=== PATIENT | male | born 1960 | race Caucasian/White ===

== ENCOUNTER → 2016-12-31 | Outpatient (CLI) | payer BC ==
[~2016-12-31] VITALS: Ht 186.1 cm; Wt 183.6 kg
[~2016-12-31] MED LIST: ALBUAER19 INH; AMLO-114 PO; ASPI81TA28 PO; ATEN-175 PO; ATOR-22 PO; GLIM4TAB2 PO; INSU1INJ SC; LISI-461 PO; METF1000 PO; NITR0.4S UT; NITR0.4S76; PANT1TAB48 PO; TRIA0.1C20; WLLSR/150 PO
[2016-12-31 13:34] VITALS: BP 139/79; PULSE 82; Ht 186.1 cm; Wt 183.6 kg
== END | disposition home or self-care (01) ==
LOC: C.NEUR 12:46
PROVIDERS: ATTEND Internal Medicine Pulmonary Disease
DX: G47.30 Sleep apnea, unspecified (principal); G47.19 Other hypersomnia; E66.9 Obesity, unspecified

== ENCOUNTER → 2017-03-15 | Outpatient (CLI) | payer BC ==
[~2017-03-15] VITALS: Ht 185.4 cm; Wt 173.5 kg
[~2017-03-15] MED LIST changes: +NITR0.1S; -NITR0.4S76
[2017-03-15 13:10] VITALS: BP 138/80; PULSE 82; Ht 185.4 cm; Wt 173.5 kg
== END | disposition home or self-care (01) ==
LOC: C.NEUR 12:58
PROVIDERS: ATTEND Internal Medicine Pulmonary Disease
DX: G47.30 Sleep apnea, unspecified (principal); G47.19 Other hypersomnia; E66.9 Obesity, unspecified

== ENCOUNTER → 2017-09-13 | Outpatient (CLI) | payer BC ==
[~2017-09-13] VITALS: Ht 185.4 cm; Wt 149.0 kg
[2017-09-13 14:17] VITALS: BP 127/81; PULSE 62; Ht 185.4 cm; Wt 149.0 kg
== END | disposition home or self-care (01) ==
LOC: C.NEUR 12:55
PROVIDERS: ATTEND Internal Medicine Pulmonary Disease
DX: G47.30 Sleep apnea, unspecified (principal)

== ENCOUNTER 2018-12-25 06:07 | Inpatient (IN) ==
--- NOTE | 2018-11-03 10:26 | Anesthesiology Consultation ---
Date of Service November 03, 2018 Assessment & Plan (1) Encounter for pre-operative examination: Plan: SURGERY WAS INITIALLY SCHEDULED FOR 07/2018, WAS R/S DUE TO INSURANCE ISSUES. HE WAS SEEN IN PAT BY AGUILA PATEL PA-C ON 06/29/18. PHYSICAL EXAM FINDINGS IN THIS CHART ARE PER HER EXAM. CARDIO CLEARANCE 06/28/18: "He has no angina and no new symptoms despite reported regular cardiovascular activity. Able to achieve at least 4 METs without angina. Further ischemic evaluation is not necessary...low cardiac risk for ischemia event based on current symptoms." CHECK BSG AM DOS Chart Review Chart Review: Acceptable Risk for Surgery and Patient NOT seen in Pre Admission Testing History Surgery Operation Date: 11/08/18 07:30 Proposed Procedures p Left Shoulder Total Arthroplasty, Biceps Tenodesis, Debridement versus Repair Rotator Cuff - Jean Pierre Coats MD Height/Weight Height: 6 ft Weight: 156 kg Allergies Allergy/AdvReac Type Severity Reaction Status Date / Time ezetimibe [From Zetia] AdvReac Mild Muscle Pain Verified 09/20/18 10:09 Medications Home Medications Medication Instructions Recorded Confirmed Last Taken amlodipine [Norvasc] 10 mg PO QAM 18 09/20/18 Unknown aspirin [Aspirin Low Dose] 81 mg PO QAM 06/26/18 09/20/18 Unknown atenolol 100 mg PO QAM 18 09/20/18 Unknown clonazepam 1 mg PO TID PRN 06/26/18 09/20/18 Unknown hydrochlorothiazide 12.5 mg PO QAM 06/26/18 09/20/18 Unknown insulin NPH and regular human 42.5 unit SUBCUT QAM 06/26/18 09/20/18 Unknown [Novolin 70/30 U-100 Insulin] insulin NPH and regular human 50 unit SUBCUT 06/26/18 09/20/18 Unknown [Novolin 70/30 U-100 Insulin] lisinopril 20 mg PO QAM 18 09/20/18 Unknown nitroglycerin 1 tab SUBLINGUAL DIRECTED 06/26/18 09/20/18 Unknown omeprazole magnesium [Prilosec OTC] 40 mg PO QAM 18 09/20/18 Unknown albuterol sulfate 1 dose INHALATION UD PRN 09/20/18 09/20/18 Unknown linagliptin [Tradjenta] 5 mg PO DAILY 09/20/18 09/20/18 Unknown Past Medical History Medical History Anxiety Asthma STABLE/4 TIMES A MONTH INHALER Cancer S/P PARTIAL LEFT NEPHRECTOMY 09/2017; NO CHEMO/RADIATION Diabetes mellitus, type 2 A1C 6.0% 10/26/18 GERD (gastroesophageal reflux disease) CONTROLLED Hyperlipidemia Hypertension Morbid obesity Osteoarthritis Sleep apnea CPAP Past Family History Family History Father Family history of diabetes mellitus Mother Family history of diabetes mellitus Past Surgical History Surgical History History of arthroscopy KNEE History of colonoscopy History of elbow surgery R X3 History of esophagogastroduodenoscopy (EGD) History of nephrectomy PARTIAL LEFT History of tooth extraction Social History Smoking Status: Never smoker Hx Alcohol Use: No Hx Substance Use: No Physical Exam Full neck and c-spine range of motion. Very short, thick neck Full TMJ range of motion. TMD 3 finger breaths Mallampati Score 1 Dentition: intact Lungs: clear throughout to auscultation Cardiac: regular rate and rhythm, no murmurs noted Spine: normal Carotid arteries: negative bruit Extremities: no edema Trimmed lópez Testing Electrocardiogram Date: 06/28/18 SR with first degree AVB with PAC at 66bpm. LAFB. Possible anterior/inferior infarct. Chest X-Ray Date: 06/29/18 Findings: + NAD Stress Test Date: 09/06/17 Type: DSE No ischemic changes noted on DSE at 74% MPHR. Nondiagnostic stress EKG. No chest pain. EF 60-65%. Mild to moderate cLVH. No significant valvular disease. Laboratory Results Laboratory Tests 10/26/18 10/26/18 10/26/18 15:02 15:02 15:02 WBC 6.40 Hgb 15.2 Hct 44.5 Plt Count 216 PT 10.1 INR 1.0 APTT 25.9 Sodium 138 Potassium 4.0 Chloride 106 Carbon Dioxide 26 BUN 15 Creatinine 1.01 Glucose 136 H
--- NOTE | 2018-12-24 15:57 | History and Physical Report ---
DATE OF ADMISSION: 12/25/2018 CHIEF COMPLAINT: Chronic left shoulder pain. HISTORY OF PRESENT ILLNESS: This is a 58-year-old male patient of Dr. Coats'diomedes complaining of chronic left shoulder pain, longstanding, now progressively getting worse. The patient has failed conservative treatment. His pain does interfere with activities of daily living. The patient has been diagnosed with a left shoulder end-stage osteoarthritis, biceps tendinopathy and rotator cuff tendinopathy. The patient wished to proceed with a left total shoulder arthroplasty, biceps tenodesis and debridement versus rotator cuff repair. PAST MEDICAL HISTORY: Angina, hypertension, hypercholesterolemia, asthma, sleep apnea with the use of CPAP, anxiety, diabetes mellitus with insulin, osteoarthritis, sciatica, acid reflux, obesity, kidney stones, kidney cancer. SOCIAL HISTORY: He is a nonsmoker, nondrinker. PAST SURGICAL HISTORY: Partial left kidney removal, right elbow and left knee surgery. FAMILY HISTORY: Noncontributory. REVIEW OF SYSTEMS: Left shoulder chronic pain and dysfunction. Otherwise, denies any shortness of breath, chest pain, nausea, vomiting or any other joint complaints. MEDICATIONS: Norvasc 10 mg daily, Prilosec 40 mg daily, lisinopril 10 mg daily, atenolol 100 mg daily, Novolin 70/30 100 units subQ per insulin sliding scale, Ventolin 90 mcg 2 puffs every 4-6 hours p.r.n., clonazepam 1 mg 3 times daily, Tradjenta 5 mg daily as needed. ALLERGIES: No known drug allergies. PHYSICAL EXAMINATION: GENERAL: Well-developed, well-nourished 58-year-old male in no acute distress. He is alert and oriented x3 and pleasant. HEENT: Normocephalic, atraumatic. Extraocular motions are intact. Pupils are equal and reactive to light. HEART: Regular rate and rhythm, no murmurs. LUNGS: Clear. ABDOMEN: Soft, nontender, bowel sounds are present. EXTREMITIES: Left shoulder reveals active range of motion of 0-30, passively to 100 with pain and crepitation. He has 4+/5 strength with pain. NEUROLOGIC: Neurovascularly, he is intact in his left upper extremity. DIAGNOSES: Left shoulder end-stage osteoarthritis, biceps tendinopathy and rotator cuff tendinopathy. He also has a history of angina, hypertension, hypercholesterolemia, asthma, sleep apnea with the use of CPAP, anxiety, diabetes with insulin, osteoarthritis, sciatica, acid reflux, obesity, kidney stones, kidney cancer, status post resection. PLAN: The patient was advised of his diagnosis. Indications, risks, benefits, postop course have all been reviewed. The patient wished to proceed with a left total shoulder arthroplasty, biceps tenodesis and debridement versus rotator cuff repair. Necessary consent forms, preoperative testing and clearances will be obtained.
[~2018-12-25 06:07] MED LIST changes: +ACETAMINOPHEN 500 MG TAB PO SCH; -ALBUAER19 INH; -AMLO-114 PO; -ASPI81TA28 PO; -ATEN-175 PO; -ATOR-22 PO; +CEFAZOLIN 3000MG 65 ML IV SCH; +CeleBREX 200 MG CAP PO SCH; +FAMOTIDINE 20 MG TAB PO SCH; +GABAPENTIN 300 MG x 2 PO SCH; -GLIM4TAB2 PO; -INSU1INJ SC; -LISI-461 PO; +LR 15ML/HR IV SCH; -METF1000 PO; +METOCLOPRAMIDE HCL 10 MG TABLET PO SCH; -NITR0.1S; -NITR0.4S UT; -PANT1TAB48 PO; -TRIA0.1C20; -WLLSR/150 PO; +dexAMETHasone 4 MG TAB PO SCH
[2018-12-25 06:36] LABS: Hematocrit (blood only) 44.2 % (42-52); Hemoglobin 15.7 g/dL (14.0-18.0); Mean Corpuscular Volume 90.9 fL (80-100); Mean Platelet Volume 8.4 fL (7.4-10.4); Platelet Count 202 K/uL (130-400); RDW Coefficient of Variation 12.4 % (11.5-14.5); RDW Standard Deviation 41.5 fL (36.4-46.3); Red Blood Count 4.86 M/uL (4.7-6.1); White Blood Count 7.02 K/uL (4.8-10.8)
[2018-12-25 06:37] LABS: Mean Corpuscular Hgb Conc 35.5 g/dL (32-36)
[2018-12-25 06:53] LABS: BUN Creatinine Ratio 16.1 (10-20); Calcium 9.3 mg/dl (8.5-10.1); Creatinine Clr Calc Pharmacy 121.4 ml/min; Est GFR (African American) 93.9; Potassium 3.9 mmol/L (3.5-5.1)
[2018-12-25] MEDS ORDERED: BACITRACIN INJ 50,000 UNIT VIAL ONE (07:00)
--- NOTE | 2018-12-25 07:19 | History & Physical Bridge Note ---
Date of Service December 25, 2018 History & Physical Bridge Note I have examined the patient, reviewed the History & Physical and in the interval since the performance of the History & Physical I have noted the following changes of clinical significance: no changes noted
[2018-12-25] MEDS ORDERED: EPINEPHrine INJ 1 MG/ML AMP ONE (07:27)
[2018-12-25] MEDS ORDERED: ROPIVACAINE 0.5% 5 MG/ML 30 ML VIAL ONE (07:27)
[2018-12-25] MEDS ORDERED: fentaNYL citrate 100 MCG/2 ML VIAL ONE (08:09)
[2018-12-25] MEDS ORDERED: MIDAZOLAM HCL 1 MG/ML 2ML VIAL ONE (08:09)
[2018-12-25] MEDS ORDERED: ONDANSETRON INJ 2 MG/ML 2 ML VIAL ONE (08:14)
[2018-12-25] MEDS ORDERED: PROPOFOL IV EMULSION 10 MG/ML 20 ML VIAL IV ONE (08:14)
[2018-12-25] MEDS ORDERED: LIDOCAINE HCL 2% 2 ML VIAL/AMP(20MG/ML) INFIL ONE (08:14)
[2018-12-25] MEDS ORDERED: DEXAMETHASONE SOD INJ 4 MG/ML VIAL ONE (08:14)
[2018-12-25] MEDS ORDERED: EPINEPHrine HCL INJ 1 MG/ML 30ML ONE (08:19)
[2018-12-25] MEDS ORDERED: LABETALOL HCL IV 5 MG/ML 20ML IV PRN (08:22)
[2018-12-25] MEDS ORDERED: HYDROmorphone INJ 1 MG/ML SYRINGE IV PRN (08:22)
[2018-12-25] MEDS ORDERED: ePHEDrine sulfate 50 MG/ML AMP IV PRN (08:22)
[2018-12-25] MEDS ORDERED: PHENYLEPHRINE 100MCG/ML 5ML SYR IV PRN (08:22)
[2018-12-25] MEDS ORDERED: fentaNYL citrate 100 MCG/2 ML VIAL IV PRN (08:22)
[2018-12-25] MEDS ORDERED: ONDANSETRON INJ 2 MG/ML 2 ML VIAL IV PRN ×2 (08:22→13:10)
[2018-12-25] MEDS ORDERED: MEPERIDINE HCL 25 MG/ML CARP IV PRN (08:22)
[2018-12-25] MEDS ORDERED: ATROPINE SULFATE 0.1 MG/ML 10ML SYR IV PRN (08:22)
[2018-12-25] MEDS ORDERED: SUCCINYLCHOLINE CHLORIDE 20 MG/ML 10 ML VIAL ONE (11:35)
--- NOTE | 2018-12-25 11:46 | Post Operative Brief Note ---
Immediate Post Op Note v1 Date of Surgery December 25, 2018 Pre & Post Diagnosis Operation Date: 12/25/18 08:40 Pre-Op Diagnosis: Left shoulder end-stage osteoarthritis, biceps tendinopathy and rotator cuff tendinopathy and morbid obesity BMI 47.6 Post-Op Diagnosis: Left shoulder end-stage osteoarthritis, biceps tendinopathy and rotator cuff tendinopathy and morbid obesity BMI 47.6 Procedure Operation Date: 12/25/18 08:40 Actual Procedures p Left Shoulder Total Arthroplasty, Biceps Tenodesis(Left) increased difficulty due to obesity BMI 47.6- Jean Pierre Coats MD Surgeon Jean Pierre Coats MD Truck [employer] Corby MAYO Estimated Blood Loss 200 Findings Consistent with Post-Op Diagnosis Specimens Bone humeral head Drains Hemovac Drain Anesthesia Type General Regional Complications none Disposition Accompanied Patient To Recovery: No Disposition: Recovery Room Overlapping Procedure I was present for: the critical portions of procedure.
--- NOTE | 2018-12-25 12:22 | XRay Report ---
XR shoulder LT min 2V routine CLINICAL HISTORY: Post shoulder surgery COMPARISON: None FINDINGS: Postoperative findings within the left shoulder noted. The hardware is intact. There is no fracture or unexpected radiopaque body. Skin faisal and surgical drains are noted. IMPRESSION: Expected postoperative findings within the left shoulder. Electronically signed by: Delonte Hale M.D. 12/25/2018 12:21 PM
--- NOTE | 2018-12-25 12:24 | Anesthesiology Progress Note ---
Date of Service December 25, 2018 Anesthesia Post Procedure Vital Signs Vital Signs: Temp Pulse Pulse Resp BP Pulse Ox 12/25/18 12:15 80 18 157/79 H 94 12/25/18 12:05 80 18 151/68 H 96 12/25/18 11:55 77 18 146/64 H 96 12/25/18 11:49 36.4 C L 77 16 126/69 96 12/25/18 06:48 36.6 C 82 20 153/82 H 97 Pain Intensity Left Shoulder: Pain Intensity: 2 Notes Mental Status: alert / awake / arousable Patient Amnestic to Procedure: Yes Nausea / Vomiting: adequately controlled Pain: adequately controlled Airway Patency, RR, SpO2: stable & adequate BP & HR: stable & adequate Hydration State: stable & adequate Anesthetic Complications: no major complications apparent and Pt Satisfied with anesthetic care Notes: The patient did well. He is awake and comfortable. His vital signs are stable. His postop BSG was elevated at 199. He will be admitted and placed on the insulin protocol.
[2018-12-25] MEDS ORDERED: NON-FORMULARY MEDICATION (Linagliptin [Tradjenta] 5 MG) PO PRN (13:10)
[2018-12-25] MEDS ORDERED: ALBUTEROL HFA 8 GM INHALER INH PRN (13:10)
[2018-12-25] MEDS ORDERED: NALOXONE HCL 0.4 MG/1 ML VIAL/CARP IV PRN (13:10)
[2018-12-25] MEDS ORDERED: HYDROmorphone INJ 0.5 MG/0.5 ML SYR IV PRN (13:10)
[2018-12-25] MEDS ORDERED: METOCLOPRAMIDE HCL INJ 5 MG/ML 2 ML VIAL IV PRN (13:10)
[2018-12-25] MEDS ORDERED: clonazePAM 1 MG TAB PO PRN (13:10)
[2018-12-25] MEDS ORDERED: BISACODYL 10 MG SUPP PR PRN (13:10)
[2018-12-25] MEDS ORDERED: MAGNESIUM HYDROXIDE SUSP 30 ML UDC PO PRN (13:10)
[2018-12-25] MEDS ORDERED: NITROGLYCERIN SL 0.4 MG/TAB TAB SL PRN (13:10)
[2018-12-25] MEDS ORDERED: PHARMACY GLYCEMIC MGMT CONSULT PRN (13:17)
[2018-12-25] MEDS ORDERED: INSULIN GLARGINE SOLOSTAR 100 UNITS/ML 3 ML PEN SC STA (14:07)
--- NOTE | 2018-12-25 14:28 | Pharmacy Report ---
Pharmacy Abx/Gly Intl Consult - Date of Service December 25, 2018 - Scope Pharmacy has been consulted by Corby Moser to manage glycemic control for this patient as per the Pharmacy & Therapeutics Committee approved dosing protocols. - Subjective The patient is a 58 year old M admitted on 12/25/18 11:57. - Objective Vital Signs (Past 12hrs): Vital Signs Temp Pulse Pulse Resp BP Pulse Ox 12/25/18 13:50 37.0 C 20 112/82 95 12/25/18 13:20 36.4 C L 80 20 108/67 95 12/25/18 12:50 36.7 C 80 18 111/69 94 12/25/18 12:30 80 18 163/74 H 95 12/25/18 12:25 36.5 C 80 18 152/75 H 95 12/25/18 12:15 80 18 157/79 H 94 12/25/18 12:05 80 18 151/68 H 96 12/25/18 11:55 77 18 146/64 H 96 12/25/18 11:49 36.4 C L 77 16 126/69 96 12/25/18 06:48 36.6 C 82 20 153/82 H 97 Accuchecks BSG (last 24hrs): 12/25/18 12/25/18 12/25/18 06:25 06:31 11:52 Glucose 153 H POC Glucose 154 H 199 H 12/25/18 13:17 Glucose POC Glucose 229 H Lab Results (24hrs): Laboratory Results - last 24 hr 12/25/18 12/25/18 12/25/18 06:25 06:25 06:25 WBC 7.02 RBC 4.86 Hgb 15.7 Hct 44.2 MCV 90.9 MCH 32.3 MCHC 35.5 RDW Std Deviation 41.5 RDW Coeff of Nae 12.4 Plt Count 202 MPV 8.4 Sodium 137 Potassium 3.9 Chloride 104 Carbon Dioxide 25 Anion Gap 8.0 BUN 16 Creatinine 1.01 Est Cr Clr Drug Dosing 121.4 Est GFR ( Amer) 93.9 Est GFR (Non-Af Amer) 81.0 BUN/Creatinine Ratio 16.1 Glucose 153 H POC Glucose Calcium 9.3 Blood Type A Positive Antibody Screen NEGATIVE 12/25/18 12/25/18 12/25/18 06:31 11:52 13:17 WBC RBC Hgb Hct MCV MCH MCHC RDW Std Deviation RDW Coeff of Nae Plt Count MPV Sodium Potassium Chloride Carbon Dioxide Anion Gap BUN Creatinine Est Cr Clr Drug Dosing Est GFR ( Amer) Est GFR (Non-Af Amer) BUN/Creatinine Ratio Glucose POC Glucose 154 H 199 H 229 H Calcium Blood Type Antibody Screen - Recent Pertinent Medications Recent Pertinent Medications/Risk Factors for Insulin Resist: Outpatient Anti-diabetic Regimen: * Tradjenta 5mg 5 days a week * Novolin 70/30 42.5 units QAM and 50 units HS * A1c = 6.0 % 10/26/18 - Assessment ASSESSMENT & PLAN: Assessment: * Mr. Pollack is a 58 year old male with a history of Type 2 diabetes, HTN, asthma, and hyperlipidemia. He is currently well managed on his outpatient regimen of Novolin 70/30 and Tradjenta, with a recent A1C of 6.0%. * Patient received dexamethasone 8mg PO pre-operatively - Plan INPATIENT GLYCEMIC CONTROL: Oral Agents * Hold outpatient oral diabetes medications. Basal Insulin * Lantus SQ BID sliding scale * BSG <200: give 20 units * BSG 200+: give 25 units Bolus Insulin * NovoLog per scale ACHS or Q6hrs while NPO * Goal Range: Low 110 mg/dL - High 140 mg/dL * Correction Factor: 10 mg/dL/unit * Nutritional / Prandial insulin per carb ratio of 1 unit per 3 grams CHO consumed * Additional checks at 0000 and 0400 * Please note that the plan above was derived based on current level of insulin resistance and hospital stress. These recommendations are appropriate for inpatient admission only. Plan of care upon discharge will need to be reassessed to avoid potential outpatient hypo/hyperglycemia. Pharmacy will follow patient and adjust orders on a daily basis. Thank you for allowing us to participate in this patients care.
[2018-12-25] MEDS: WELCHOL~ORDER AWAITING ACTION SCH ×3 (14:32→23:44)
[2018-12-25] MEDS: ACETAMINOPHEN 500 MG TAB PO SCH ×2 (14:47→21:37)
[2018-12-25] MEDS: INSULIN ASPART 100 UNITS/ML 3 ML PEN SC SCH ×4 (14:49→23:42)
[2018-12-25] MEDS: CEFAZOLIN 2000MG 2,000 MG/15 ML SYR IV SCH ×2 (17:02→23:44)
[2018-12-25] MEDS: SODIUM CHLORIDE 0.9% 1000ML 1,000 ML IV SCH (17:02)
[2018-12-25] MEDS ORDERED: SENNA 8.6 MG TAB PO SCH (21:00)
[2018-12-25] MEDS: DOCUSATE SODIUM 100 MG CAP PO SCH (21:38)
[2018-12-25] MEDS: INSULIN GLARGINE SOLOSTAR 100 UNITS/ML 3 ML PEN SC SCH (21:39)
--- NOTE | 2018-12-25 21:47 | Consultation ---
Date of Consultation December 25, 2018 Assessment & Plan (1) S/P shoulder surgery: Left total shoulder with Dr. Coats on 12/25. No marjorie-operative complications. - Post-operative care per primary team (2) Diabetes mellitus, type 2: Complicated outpatient regimen with somewhat non-standard insulins. - Inpatient glycemic pharmacist consult - Long-acting and sliding scale insulin (3) Hypertension: BP currently 110/70. - Continue home meds (4) Asthma: No shortness of breath or wheezing on exam today. - Albuterol PRN (5) Sleep apnea: Has some anxiety related to CPAP use. - Has home device; can use if he would like, but no urgent medical need to use it while inpatient. (6) Anxiety: Long-standing anxiety. - Continue home med (7) DVT prophylaxis: SCDs - Will discuss with surgeon when to start chemoprophylaxis History of Present Illness Attending Physician: Jean Pierre Coats MD History of Present Illness 58yo M with hx of HTN, asthma, DM, and RYAN who presents as a medical consult after total left shoulder with Dr. Coats on 12/25. Patient reports ongoing left shoulder pain that was resistant to conservative therapies. Underwent procedure with Dr. Coats without complication. At present, he reports minimal shoulder pain. Reports that he sometimes uses his CPAP at night, but has anxiety issues with it. Reports no fevers/chills, chest pain, shortness of breath, abdominal pain, nausea, or vomiting. Allergies Allergy/AdvReac Type Severity Reaction Status Date / Time ezetimibe [From Zetia] AdvReac Mild Muscle Pain Verified 12/25/18 06:33 Iodinated Contrast- Oral and AdvReac Mild Verified 12/25/18 06:37 IV Dye Home Medications Home Medications Medication Instructions Recorded Confirmed Type amlodipine [Norvasc] 10 mg PO QAM 06/26/18 12/25/18 History aspirin [Aspirin Low Dose] 81 mg PO QAM 06/26/18 12/25/18 History atenolol 100 mg PO QAM 06/26/18 12/25/18 History clonazepam 1 mg PO TID PRN 06/26/18 12/25/18 History hydrochlorothiazide 12.5 mg PO QAM 06/26/18 12/25/18 History insulin NPH and regular human 42.5 unit SUBCUT QAM 06/26/18 12/25/18 History [Novolin 70/30 U-100 Insulin] insulin NPH and regular human 50 unit SUBCUT HS 06/26/18 12/25/18 History [Novolin 70/30 U-100 Insulin] lisinopril 20 mg PO QAM 06/26/18 12/25/18 History nitroglycerin 1 tab SUBLINGUAL DIRECTED 06/26/18 12/25/18 History omeprazole magnesium [Prilosec OTC] 40 mg PO QAM 06/26/18 12/25/18 History albuterol sulfate 1 dose INHALATION UD PRN 09/20/18 12/25/18 History linagliptin [Tradjenta] 5 mg PO DAILY PRN 09/20/18 12/25/18 History colesevelam [WelChol] 3 tab PO BID 11/10/18 12/25/18 History Patient History Medical History Anxiety Asthma STABLE/4 TIMES A MONTH INHALER Cancer S/P PARTIAL LEFT NEPHRECTOMY 09/2017; NO CHEMO/RADIATION Diabetes mellitus, type 2 A1C 6.0% 10/26/18 GERD (gastroesophageal reflux disease) CONTROLLED Hyperlipidemia Hypertension Morbid obesity Osteoarthritis Sleep apnea CPAP Surgical History History of arthroscopy KNEE History of colonoscopy History of elbow surgery R X3 History of esophagogastroduodenoscopy (EGD) History of nephrectomy PARTIAL LEFT History of tooth extraction Family History Father Family history of diabetes mellitus Mother Family history of diabetes mellitus Social History Preferred Language: Yemeni Communication Ability: Effective Resource Manager Required: No Beliefs That Will Affect Care: None Current Living Situation: Significant Other Current Living Situation Comment: [facility] Other Information That Helps Us Care for You: No Feels Safe at Home: Yes Safety Concerns: Feels Safe At This Time Smoking Status: Never smoker Hx Alcohol Use: No Hx Substance Use: No Review of Systems Constitutional: no fever, no chills and no sweats Eyes: no diplopia Ear, Nose, Mouth, Throat: no ear trauma, no nasal discharge and no dental pain Respiratory: no cough, no chest congestion and no dyspnea Cardiovascular: no chest pain, no dyspnea on exertion, no palpitations and no syncope Gastrointestinal: no abdominal pain, no belching, no constipation, no diarrhea/loose stools, no blood in stools and no melena Musculoskeletal: no back pain, no joint pain and no muscle weakness Integumentary: no rash, no skin ulcer and no erythema Neurologic: no generalized weakness, no loss of sensation, no numbness and no paresthesia Psychiatric: no depression and no anxiety Endocrine: no fatigue, no polydipsia and no polyphagia Physical Exam Vital Signs (Past 24 Hours): Last Vital Signs Temp 37 C 12/25/18 19:00 Pulse 79 12/25/18 19:00 Resp 20 12/25/18 19:00 BP 111/67 12/25/18 19:00 Pulse Ox 92 12/25/18 19:00 Constitutional: WD/WN, vitals as above Eyes: EOM intact bilaterally; no conjunctival abnormality ENMT: external ear and nose normal, oropharynx normal Neck: trachea midline, no thyromegaly normal visual inspection Respiratory: normal respiratory effort, lungs clear to auscultation no respiratory distress Cardiovascular: RRR, no murmur, no edema Gastrointestinal (Abdomen): Inspection/Auscultation: abdomen normal to inspection; abdomen not distended Musculoskeletal: Left shoulder in sling Skin: no rashes, warm and dry Neurologic: moves all extremities and awake Psychiatric: Orientation: alert, oriented to person and cooperative
[2018-12-25] MEDS: OXYCODONE HCL IR 5 MG TAB (IMMEDIATE RELEASE) PO PRN (21:51)
--- NOTE | 2018-12-26 01:22 | Operative Report ---
DATE OF OPERATION: 12/25/2018 INDICATION FOR PROCEDURE: The patient is a 58-year-old male with chronic progressive osteoarthritis of his left shoulder, failed conservative management. He is also morbidly obese. He has lost a great deal of weight but still is morbidly obese. His shoulder pain is disabling. Radiographs demonstrate that he has advanced glenohumeral osteoarthritis, typical large inferior humeral osteophyte. He has concentric wear on axillary view. He is completely bone on bone in the glenohumeral joint. Still has maintained subacromial space. MRI demonstrates his rotator cuff has tendinopathy, but not torn. MRI also shows that he has biceps tenosynovitis, biceps tendinopathy. PREOPERATIVE DIAGNOSES: Left shoulder end-stage glenohumeral osteoarthritis, biceps and rotator cuff tendinopathy, morbid obesity, BMI of 47.6. POSTOPERATIVE DIAGNOSES: Same, with intact rotator cuff. PROCEDURE: Left total shoulder arthroplasty, biceps tenodesis, increased difficulty with morbid obesity, BMI of 47.6. SURGEON: Jean Pierre Coats MD CONSTRUCTION OPERATIONS MANAGER: MARIA ESTHER Newsome ANESTHESIA: Regional block and general. OPERATIVE PROCEDURE: The patient was taken to the operative room and anesthetized under regional block and general anesthetic. He was placed supine on the operating room table initially. We had to translate him to left side of the bed, placed on a roll in the medial border of his left scapula, placed his head on a foam headrest. He had TEDs and SCDs and all extremities were well padded. Positioning was more difficult due to his massive size. The patient was then positioned in a 30- to 40-degree beach position and his left shoulder was examined under anesthesia. Shoulder exam demonstrated that he had about 45-50 degrees of external rotation and forward elevation to 150 degrees. His left shoulder was sterilely prepped and draped in sterile fashion with ChloraPrep. An anterior deltopectoral approach was then performed. Skin was incised sharply. Deep layer of fat was divided down to the fascia. Subcutaneous flaps were elevated. The cephalic vein was dissected out and retracted laterally with the deltoid. The pectoralis retracted medially. The upper centimeter of the pectoralis was released for inferior exposure. Biceps tendon sheath was opened up. There was significant biceps tenosynovitis extending up into the bicipital groove. The tenosynovectomy was performed. The biceps was tenodesed to the pectoralis tendon with [id number] #2 Fiberwire sutures. Proximal biceps was resected. The bursa over the subscapularis and rotator cuff was resected. The rotator cuff was noted to be completely intact. A self-retaining retractor was placed. The rotator interval was opened up and extended lateral to the lesser tuberosity. Then circumflex vessels were tied off with silk ties and divided laterally. Then the subscapularis muscle fibers were split at the level of the circumflex vessels and a cuff of muscle was left to protect the axillary nerve. A Kitner elevator was used to reflect the muscle off the inferior capsule and then a blunt Hohmann retractor was placed between the capsule and the axillary nerve. Then the subscapularis was taken down with a transtendinous incision leaving a cuff of tissue for repair on the lesser tuberosity. Then the humerus was gradually externally rotated exposing the humeral head. Humeral head had complete exposed bone, large circumferential osteophytes. The inferior osteophytes were removed with a large chisel and a rongeur and we did capsular release on the neck using a Blake elevator. Superior osteophytes were resected. Then, we used a Fukuda retractor to retract the humeral head posterior to the glenoid and I released the capsule down to the glenoid under direct visualization, then released the capsule off the anterior glenoid and rotator interval down to that release getting a 360-degree release of subscapularis anteriorly. This revealed some large osteophytes on the anterior glenoid, some superior osteophytes on the glenoid as well, and a widened, thickened biceps tendon with tendinopathy, chronic. The labrum was resected circumferentially as well. The biceps tendon was resected. Then we did an anterior inferior and posterior inferior capsular release using both electrocautery and Blake elevator on bone with the axillary nerve protected with the blunt Hohmann retractor. At this time, we went back to the humeral preparation. The humerus was exposed. The humeral head which was very large was resected with an oscillating saw. The Simpliciti total shoulder replacement system from [facility] was used. The humeral head was sized for a size 56 head. The sizing guide was placed over the cut surface. The guide pin was advanced through the guide engaging the opposite cortex. Then the reamer was used followed by the drill for the size 3 nucleus followed by the size 3 nucleus Betsy broach. This was left slightly proud and then the cup protector was placed. Then we retracted the humerus posteriorly to the glenoid and the glenoid findings were completely exposed bone with central wear. There was a tiny rim of articular cartilage superiorly and anteriorly remaining which was curetted off. All the osteophytes removed around the glenoid and then the central drill hole was made for the reamer. We did size the glenoid for a large 40 radius pegged Cortiloc system. Then the reamer was used followed by the widening of the central hole followed by the guide for the peripheral peg holes, which were drilled followed by trial reduction with a large glenoid trial followed by irrigation with antibiotic solution of bacitracin with packing each individual hole with epinephrine-soaked tampons. Then the Palacos G cement was vacuum mixed. Then the cement was injected into the peg holes and placed on the back of the implant and the glenoid was then cemented in position with an excellent fit. All excess cement was cleared and it was held in position until the cement cured. We checked stability and then went ahead back to the humerus in which we did trial reduction with a trial 56 head which had good stability and then we removed that trial as well as the Betsy broach and then irrigated out the surface with antibiotic solution of bacitracin. Placed 3 drill holes medial to the lesser tuberosity, placed 3 transosseous #5 FiberWire sutures around the lesser tuberosity. Then after further irrigation, the size 3 nucleus was advanced into position, leaving it about 3 mm proud and then we placed on the 56 x 18 head onto the nucleus, impacted the implant to engage the Hidalgo taper and seat the nucleus fully and there was a good fit and we assessed this to be stable and then the humerus was reduced to the glenoid. We verified stability and then went ahead. I repaired the subscapularis with the #5 FiberWire sutures using Darrell-Leon suture technique followed by lateral row fixation with tyryad-ry-mimhz #2 FiberWire sutures closing the rotator interval in external rotation with interrupted #2 Fiberwire sutures. The pectoralis was repaired and the biceps tenodesis was reinforced by placing #2 FiberWire sutures in the pectoralis tendon through the biceps tendon as well as repairing the pectoralis split with [id number] #2 FiberWire sutures. The patient had at least 50 degrees of external rotation, 90 degrees of abduction and forward elevation to 140 degrees without tension on the repair. The wound was irrigated. Two Hemovac drains were brought out laterally. The deltopectoral interval was repaired with [id number] #1 Vicryl sutures. Then, the subcutaneous tissues were closed with interrupted 2-0 Vicryl sutures. The skin was closed with faisal. Sterile dressings were applied. The patient had about 200 mL of blood loss. There were no complications noted. We did do the closure over 2 Hemovac drains and the patient tolerated the procedure well. MARIA ESTHER Newsome, was my first leveler and functioned as first leveler for the entire procedure. He assisted in patient positioning, prepping, draping, arm positioning, soft tissue retraction, instrument management, suture management, performed the subcutaneous and skin closure and sling application and will participate in the postoperative care of the patient. There was increased difficulty due to the patient's size, BMI of 47.6. I attest to the content of the Intraoperative Record and any orders documented therein. Any exception s are noted below.
[2018-12-26] MEDS: OXYCODONE HCL IR 5 MG TAB (IMMEDIATE RELEASE) PO PRN ×4 (01:42→16:05)
[2018-12-26] MEDS: SODIUM CHLORIDE 0.9% 1000ML 1,000 ML IV SCH (02:57)
[2018-12-26] MEDS: INSULIN ASPART 100 UNITS/ML 3 ML PEN SC SCH ×3 (04:33→13:45)
[2018-12-26] MEDS: ACETAMINOPHEN 500 MG TAB PO SCH ×2 (05:58→13:46)
[2018-12-26 06:19] LABS: Hematocrit (blood only) 36.1 % (42-52); Hemoglobin 12.7 g/dL (14.0-18.0); Immature Granulocytes # (auto) 0.02 K/uL (0.00-0.02); Immature Granulocytes % (auto) 0.2 %; Lymphocytes # (auto) 0.78 K/uL (1.2-3.4); Lymphocytes % (auto) 8.2 %; Mean Corpuscular Hgb Conc 35.2 g/dL (32-36); Mean Corpuscular Volume 91.6 fL (80-100); Mean Platelet Volume 8.3 fL (7.4-10.4); Monocytes # (auto) 0.82 K/uL (0.11-0.59); Monocytes % (auto) 8.6 %; Neutrophils # (auto) 7.93 K/uL (1.4-6.5); Platelet Count 170 K/uL (130-400); RDW Coefficient of Variation 12.4 % (11.5-14.5); RDW Standard Deviation 41.9 fL (36.4-46.3); Red Blood Count 3.94 M/uL (4.7-6.1); White Blood Count 9.55 K/uL (4.8-10.8)
[2018-12-26 06:42] LABS: BUN Creatinine Ratio 19.9 (10-20); Calcium 8.2 mg/dl (8.5-10.1); Creatinine Clr Calc Pharmacy 133.4 ml/min; Est GFR (African American) 103.8; Est GFR (Non-African American) 89.5; Potassium 4.1 mmol/L (3.5-5.1)
--- NOTE | 2018-12-26 07:57 | Anesthesiology Progress Note ---
Date of Service December 26, 2018 Anesthesia Post Procedure Vital Signs Vital Signs: Temp Pulse Pulse Resp BP Pulse Ox 12/26/18 07:20 36.8 C 74 18 118/68 94 12/26/18 04:25 36.6 C 74 16 114/68 93 12/25/18 23:05 36.7 C 73 16 118/71 94 12/25/18 19:00 37 C 79 20 111/67 92 12/25/18 15:52 36.9 C 84 20 113/68 92 12/25/18 14:45 37.3 C 78 20 100/64 97 12/25/18 13:50 37.0 C 20 112/82 95 12/25/18 13:20 36.4 C L 80 20 108/67 95 12/25/18 12:50 36.7 C 80 18 111/69 94 12/25/18 12:30 80 18 163/74 H 95 12/25/18 12:25 36.5 C 80 18 152/75 H 95 12/25/18 12:15 80 18 157/79 H 94 12/25/18 12:05 80 18 151/68 H 96 12/25/18 11:55 77 18 146/64 H 96 12/25/18 11:49 36.4 C L 77 16 126/69 96 Pain Intensity Left Shoulder: Pain Intensity: 2 Notes Mental Status: alert / awake / arousable and participated in evaluation Patient Amnestic to Procedure: Yes Nausea / Vomiting: adequately controlled Pain: adequately controlled Airway Patency, RR, SpO2: stable & adequate BP & HR: stable & adequate Hydration State: stable & adequate Anesthetic Complications: no major complications apparent and Pt Satisfied with anesthetic care
--- NOTE | 2018-12-26 08:22 | Orthopedic Progress Note ---
Date of Service December 26, 2018 Assessment & Plan (1) S/P shoulder surgery: POD #1, Left TSA, biceps tenodesis DVT proph- ASA D/C planning- Home w OPPT today after 1500 if pain controlled and ambulating well. PT/ OT. Subjective POd #1, Doing well, denies sob, cp, n/v, states pain controlled well. Physical Exam Vital Signs (Past 24 Hours): Last Vital Signs Temp 36.8 C 12/26/18 07:20 Pulse 74 12/26/18 07:20 Resp 18 12/26/18 07:20 BP 118/68 12/26/18 07:20 Pulse Ox 94 12/26/18 07:20 Physical Exam: Left shoulder dressings/ drain c/d/i, no drainage, fingers mobile, sling in tact.
[2018-12-26] MEDS: WELCHOL~ORDER AWAITING ACTION SCH (08:44)
[2018-12-26] MEDS: DOCUSATE SODIUM 100 MG CAP PO SCH (08:49)
[2018-12-26] MEDS: INSULIN GLARGINE SOLOSTAR 100 UNITS/ML 3 ML PEN SC SCH (08:54)
[2018-12-26] MEDS ORDERED: PANTOprazole 40 MG TAB PO SCH (09:00)
[2018-12-26] MEDS ORDERED: MULTIVITAMIN TAB PO SCH (09:00)
[2018-12-26] MEDS ORDERED: LISINOPRIL 20 MG TAB PO SCH (09:00)
[2018-12-26] MEDS ORDERED: ASPIRIN 81 MG ECTAB PO SCH (09:00)
[2018-12-26] MEDS ORDERED: AMLODIPINE BESYLATE 5 MG TAB PO SCH (09:00)
[2018-12-26] MEDS ORDERED: ATENOLOL 50 MG TABLET PO SCH (09:00)
--- NOTE | 2018-12-26 13:37 | Pharmacy Report ---
Pharmacy Glycemic Short Note 2 - Date of Service December 26, 2018 - Glycemic Short BSG Results (Last 24 hours): 12/25/18 12/25/18 12/25/18 17:12 19:52 20:40 Glucose POC Glucose 277 H 247 H 228 H 12/25/18 12/26/18 12/26/18 23:35 04:31 05:51 Glucose 147 H POC Glucose 175 H 144 H 12/26/18 12/26/18 08:12 12:19 Glucose POC Glucose 159 H 152 H ASSESSMENT: * Mr. Pollack's BSGs over the preceding 24hrs: [id number]/dL. Yesterday's sustained hyperglycemia attributable to pre-operative PO DXM. I anticipate the effects to dissipate within the next 12hrs. Will continue with standing insulin orders PLAN FOR INPATIENT GLYCEMIC CONTROL: * Hold outpatient oral diabetes medications * Basal insulin * Lantus scale SQ BID * BSGs <200mg/dL give 20 units * BSGs >/=200mg/dL give 25 units * Bolus insulin * NovoLog per scale ACHS or Q6hrs while NPO * Goal Range: Low 110 mg/dL - High 140 mg/dL * Correction Factor: 10 mg/dL/unit * Nutritional / Prandial insulin per carb ratio of 1 unit per 3 grams CHO consumed PLAN FOR DISCHARGE: * a1c is at goal based on age and co morbidities. I would continue his home Rx if he doesn't report frequent hypoglycemia.
[2018-12-26] MEDS ORDERED: COLESEVELAM HCL PO SCH (17:00)
--- NOTE | 2018-12-26 18:18 | Hospitalist Progress Note ---
Date of Service December 26, 2018 Assessment & Plan (1) S/P shoulder surgery: Left total shoulder with Dr. Coats on 12/25. No marjorie-operative complications. - Post-operative care per primary team (2) Diabetes mellitus, type 2: Complicated outpatient regimen with somewhat non-standard insulins. - Inpatient glycemic pharmacist consult - Inpatient sugars were well-controlled; returned to home regimen on discharge. (3) Hypertension: BP currently 110/70. - Continue home meds (4) Asthma: No shortness of breath or wheezing on exam today. - Albuterol PRN (5) Sleep apnea: Has some anxiety related to CPAP use. - Has home device; can use if he would like, but no urgent medical need to use it while inpatient. (6) Anxiety: Long-standing anxiety. - Continue home med (7) DVT prophylaxis: SCDs - Will discuss with surgeon when to start chemoprophylaxis Subjective Some shoulder pain, but otherwise feeling well. Sad because a pet at home. Physical Exam Vital Signs (Past 24 Hours): Last Vital Signs Temp 36.5 C 12/26/18 14:59 Pulse 65 12/26/18 14:59 Resp 20 12/26/18 14:59 BP 117/72 12/26/18 14:59 Pulse Ox 95 12/26/18 14:59 Constitutional: WD/WN, vitals as above Eyes: EOM intact bilaterally; no conjunctival abnormality ENMT: external ear and nose normal, oropharynx normal Neck: trachea midline, no thyromegaly normal visual inspection Respiratory: normal respiratory effort, lungs clear to auscultation no respiratory distress Cardiovascular: RRR, no murmur, no edema Gastrointestinal (Abdomen): Inspection/Auscultation: abdomen normal to inspection; abdomen not distended Musculoskeletal: Left shoulder in sling Skin: no rashes, warm and dry Neurologic: moves all extremities and awake Psychiatric: Orientation: alert, oriented to person and cooperative
--- NOTE | 2018-12-27 08:27 | Discharge Summary ---
Date of Service January 03, 2019 Discharge Data Consultations 12/20/18 13:51 Consult Hospitalist Routine 12/25/18 13:10 Consult Case Management - Discharge Planning Routine Procedures Performed Operation Date: 12/25/18 08:40 Actual Procedures p Left Shoulder Total Arthroplasty, Biceps Tenodesis(Left) - Jean Pierre Coats MD
--- NOTE | 2019-01-02 04:27 | Discharge Summary ---
DISCHARGE DIAGNOSES: Degenerative joint disease, left shoulder with biceps and rotator cuff tendinopathy. SECONDARY DIAGNOSES: History of angina, hypertension, hypercholesterolemia, asthma, sleep apnea with use of CPAP, anxiety, diabetes mellitus with insulin use, osteoarthritis, sciatica, gastroesophageal reflux disease, obesity, renal calculi, renal carcinoma. CONSULTS: Dr. Federico Khan. COMPLICATIONS: None. PROCEDURES: Left total shoulder arthroplasty with biceps tenodesis by Dr. Coats on 12/25/2018. BRIEF HISTORY: As dictated in the history and physical. HOSPITAL SUMMARY: The patient was admitted on the above-noted date and had the above-noted surgery performed which he tolerated well. On the first postoperative day, the patient was doing well and denied shortness of breath, chest pain or nausea, vomiting. Pain was controlled. Vital signs were stable and they were afebrile. Left shoulder dressings were intact and dry. No drainage. Fingers were mobile. Sling was intact. The patient was started on physical therapy protocol and continued on DVT prophylaxis and pain management. The patient was progressing well and was remaining medically stable and was discharged to home on 12/26/2018. For further review, please see chart. LABORATORY AND X-RAY DATA: As per chart. DISCHARGE INSTRUCTIONS: The patient was discharged to home in satisfactory condition on 12/26/2018. Diet: Diabetic. Activity: Follow total shoulder arthroplasty instruction sheets and special care instructions as noted. Follow up with Dr. Coats in 2 weeks. The patient is to call for appointment if one has not been made for you. DISCHARGE MEDICATIONS: Acetaminophen 1000 mg p.o. q. 8 hours, oxycodone 5 mg p.o. q. 4 hours p.r.n. Resume home meds as listed.
== END 2018-12-26 16:05 | disposition home or self-care (01) | DRG 483 ==
LOC: ASU 06:07 → 3E 11:57